=== PATIENT | female | born 1965 | race Two or more races ===

== ENCOUNTER 2018-10-01 14:45 | Outpatient (CLI) | payer OTHER ==
[~2018-10-01] VITALS: Ht 165.1 cm; Wt 104.3 kg
== END 2018-10-01 15:00 | disposition home or self-care (01) ==
LOC: OFIC 805 14:45
DX: E04.1 Nontoxic single thyroid nodule (principal)

== ENCOUNTER 2018-12-16 05:50 | Day surgery (SDC) | payer OTHER ==
[~2018-12-16 05:50] MED LIST: HYZAAR 100-251 EACH PO; SYNTHROID50 MCG PO; TOPROL XL50 M1 PO; VISTARIL50 MG PO; ZYRTEC10 MG PO
[2018-12-16] MEDS ORDERED: PERCOCET 5-3251 EACH PO (09:16)
== END 2018-12-16 12:15 | disposition home or self-care (01) ==
LOC: CIR.AMB 05:50
DX: D34 Benign neoplasm of thyroid gland (principal); E06.3 Autoimmune thyroiditis

== ENCOUNTER 2020-11-13 11:51 | Outpatient (CLI) | payer OTHER ==
[~2020-11-13 11:51] MED LIST changes: +PERCOCET 5-3251 EACH PO
[2020-11-16] MEDS ORDERED: SYNTHROID175 MCG PO (12:43)
== END 2020-11-13 15:00 | disposition home or self-care (01) ==
LOC: LAB 11:51
PROVIDERS: ATTEND Surgery
DX: Z20.828 Contact with and (suspected) exposure to other viral communicable diseases (principal); I10 Essential (primary) hypertension

== ENCOUNTER 2020-11-17 06:15 | Day surgery (SDC) | payer OTHER ==
[~2020-11-17 06:15] MED LIST changes: +SYNTHROID175 MCG PO
== END 2020-11-17 16:35 | disposition home or self-care (01) ==
LOC: CIR.AMB 06:15 → LAB 07:28 → CIR.AMB 08:55
PROVIDERS: ATTEND Surgery
DX: D05.11 Intraductal carcinoma in situ of right breast (principal); Z20.828 Contact with and (suspected) exposure to other viral communicable diseases; N62 Hypertrophy of breast; Z90.11 Acquired absence of right breast and nipple